=== PATIENT | female | born 1965 | race Caucasian/White ===

== ENCOUNTER 2020-01-24 11:08 | Emergency (ER) | payer BC, OTHER ==
[2020-01-24] MEDS ORDERED: ONDANSETRON INJ 4 MG/2 ML VIAL IV ONE (11:27)
[2020-01-24] MEDS ORDERED: SODIUM CHLORIDE 0.9% 1000ML 1,000 ML IVS ONE (11:27)
[2020-01-24] MEDS ORDERED: SODIUM CHLORIDE 0.9% (FLUSH) 10 ML SYG IV PRN (11:27)
--- NOTE | 2020-01-24 11:31 | ED.PDOC ---
History of Present Illness - General Chief Complaint: Abdominal Pain Stated Complaint: abdominal pain Time Seen by Provider: 01/24/20 11:18 Information Source: patient, RN notes reviewed, Vital Signs reviewed Exam Limitations: no limitations - History of Present Illness Initial Comments: Patient is a 54-year-old white female who presents with complaints of 4 to 5 days of lower abdominal pain, worsening. Patient denies any history of medical problems but does take synthetic hormones for her menopause and until about 6 months ago had started on thyroid hormone but has not taken it in the last 6 months. Patient states that her lower abdominal pain is worsening. It is cramping and colicky in nature. It is bilateral. Nothing seems to make it better. Worse with eating. There is no radiation of the pain. She does complain of some malaise and fatigue. Abdominal Pain Onset Location: RLQ, LLQ, suprapubic Pain Radiation: no radiation Quality: moderate, cramping, intermittent, waxing/waning Timing/Duration: 1 week, getting worse Improving Factors: nothing Worsening Factors: eating Associated Symptoms: fatigue, nausea/vomiting - nausea only., weakness Review of Systems - Review of Systems Constitutional: States: see HPI, malaise, weakness. Denies: chills, fever EENTM: States: no symptoms reported. Denies: eye pain, blurred vision, double vision Respiratory: States: no symptoms reported. Denies: cough, short of breath Cardiology: States: no symptoms reported. Denies: chest pain, palpitations, syncope Gastrointestinal/Abdominal: States: see HPI, abdominal pain, nausea. Denies: constipation, diarrhea, vomiting Genitourinary: States: no symptoms reported. Denies: dysuria, frequency Musculoskeletal: States: no symptoms reported. Denies: back pain, joint pain, neck pain Skin: States: no symptoms reported. Denies: change in color, rash Neurological: States: see HPI, weakness. Denies: headache, numbness, paresthesia, tingling, tremors Endocrine: States: no symptoms reported. Denies: increased hunger, increased thirst, increased urine Hematologic/Lymphatic: States: no symptoms reported. Denies: blood clots, easy bleeding All other Systems: Reviewed and Negative Past Medical History (General) - Patient Medical History Hx Asthma: Yes Hx Gastroesophageal Reflux: Yes Hx Cancer: No Hx Hepatitis C: No - Vaccination History Hx Influenza Vaccination: Yes - Social History Hx Tobacco Use: No Hx Alcohol Use: No - Female History Patient : No Family Medical History - Family History Mother Family History: Unknown Living Status: Still Living Physical Exam - Physical Exam General Appearance: Alert, Anxious, Obvious distress, Well Developed, Well Groomed, Well Hydrated, Well Nourished Eyes, Ears, Nose, Throat Exam: PERRL/EOMI, normal ENT inspection, pharynx normal Neck: non-tender, full range of motion, supple, normal inspection Respiratory: chest non-tender, lungs clear, normal breath sounds, no respiratory distress, no accessory muscle use Cardiovascular/Chest: normal peripheral pulses, regular rate, rhythm, no edema, no gallop, no JVD, no murmur Peripheral Pulses: No deficit Gastrointestinal/Abdominal: normal bowel sounds, soft, distended, tenderness - bilateral lower quadrants with mild suprapubic TTP. Back Exam: normal inspection, no CVA tenderness, no vertebral tenderness Extremity: normal range of motion, non-tender, normal inspection, no pedal edema Neurologic: warp preparer II-XII nml as tested, no motor/sensory deficits, alert, normal mood/affect, oriented x 3 Skin Exam: normal color, warm/dry Lymphatic: no adenopathy Progress - Progress Progress: Differential diagnosis: UTI, bowel obstruction, pyelonephritis, appendicitis among others. 01/24/20 13:55 Labs are relatively unremarkable. There is no UTI by urinalysis. There is not an elevated white count. Patient does have heme positive stool which is concerning for potential malignancy. CT scan does not show any abnormalities, but with a heme positive stool patient will need to be seen by GI and have an endoscopy performed. I have discussed plan of care of discharging patient home with pain medication and Zofran. She voices understanding and agreement with the plan of care. Kvein García M.D. #[id number] - Results/Orders Results/Orders: 01/24/20 11:27 Hold Metformin x 48Hrs [id number] Sodium Chloride 0.9% (Flush) [Saline Flush Syringe] 10 ml IV PRN PRN Laboratory Results - last 24 hr 01/24/20 01/24/20 01/24/20 11:15 11:30 11:30 WBC 9.0 RBC 4.78 Hgb 14.6 Hct 43.6 MCV 91.3 MCH 30.6 MCHC 33.5 RDW 14.1 Plt Count 300 MPV 7.7 Absolute Neuts (auto) 5.40 Absolute Lymphs (auto) 2.50 Absolute Monos (auto) 0.90 H Absolute Eos (auto) 0.10 Absolute Basos (auto) 0.10 Neutrophils % 59.9 Lymphocytes % 28.1 Monocytes % 10.0 H Eosinophils % 1.2 Basophils % 0.8 Sodium 139 Potassium 3.8 Chloride 102 Carbon Dioxide 27 Anion Gap 13.8 BUN 8 Creatinine 0.99 BUN/Creatinine Ratio 8.1 L Random Glucose 92 Serum Osmolality 275.5 Calcium 8.9 Total Bilirubin 1.0 Direct Bilirubin 0.1 Indirect Bilirubin 0.9 H AST 31 ALT 53 Alkaline Phosphatase 124 H Serum Total Protein 7.8 Albumin 4.6 Lipase 39 TSH Urine Color Yellow Urine Appearance Sl cloudy Urine pH 5.5 Ur Specific [place] >= 1.030 Urine Protein Negative Urine Glucose (UA) Negative Urine Ketones Negative Urine Blood Trace-lysed H Urine Nitrite Negative Urine Bilirubin Negative Urine Urobilinogen 0.2 Ur Leukocyte Esterase Negative Urine RBC 0-1 Urine WBC 1-3 Ur Epithelial Cells 3-5 Amorphous Sediment 1+ Urine Bacteria Rare Urine Mucus Small Stool Occult Blood 01/24/20 01/24/20 11:30 11:56 WBC RBC Hgb Hct MCV MCH MCHC RDW Plt Count MPV Absolute Neuts (auto) Absolute Lymphs (auto) Absolute Monos (auto) Absolute Eos (auto) Absolute Basos (auto) Neutrophils % Lymphocytes % Monocytes % Eosinophils % Basophils % Sodium Potassium Chloride Carbon Dioxide Anion Gap BUN Creatinine BUN/Creatinine Ratio Random Glucose Serum Osmolality Calcium Total Bilirubin Direct Bilirubin Indirect Bilirubin AST ALT Alkaline Phosphatase Serum Total Protein Albumin Lipase TSH 2.33 Urine Color Urine Appearance Urine pH Ur Specific [place] Urine Protein Urine Glucose (UA) Urine Ketones Urine Blood Urine Nitrite Urine Bilirubin Urine Urobilinogen Ur Leukocyte Esterase Urine RBC Urine WBC Ur Epithelial Cells Amorphous Sediment Urine Bacteria Urine Mucus Stool Occult Blood Positive H EXAM: Abdomen/Pelvis w/Contrast CLINICAL HISTORY: bilateral lower abdominal pain COMPARISON STUDY: CT abdomen and pelvis from June 03, 2011 TECHNICAL: Post IV and oral contrast images were performed through the abdomen and pelvis. Sagittal and coronal reconstructions were obtained. FINDINGS: The visible portion of the chest is negative. The heart is not enlarged. The liver, spleen, pancreas, adrenal glands, and kidneys enhance appropriately and demonstrate no acute abnormality. The liver measures 18 cm. A mild diffuse decreased density is seen throughout the hepatic parenchyma. The gallbladder is intact and there is no evidence of biliary dilatation. There is no bowel obstruction or free air. A few scattered sigmoid diverticula are present. There is no acute inflammatory process. The appendix is visible and normal. The aorta, IVC and retroperitoneum are negative. Structures within the pelvis are negative. The uterus is absent. The visible osseous structures are negative. IMPRESSION: NO ACUTE INTRA-ABDOMINAL OR PELVIC ABNORMALITY. This exam was performed according to our departmental dose-optimization program, which includes automated exposure control, adjustment of the mA and/or kV according to patient size and/or use of iterative reconstruction technique. Electronically signed by: Royce Becker MD 01/24/2020 1:08 PM Vital Signs 01/24/20 01/24/20 01/24/20 11:47 12:33 13:00 Temperature 98.0 F Pulse Rate [ 64 66 68 Left Radial] Respiratory 18 14 14 Rate Blood Pressure 145/75 118/74 124/74 [Right Arm] O2 Sat by Pulse 99 98 98 Oximetry Departure - Departure Clinical Impression: Rectal bleeding Abdominal pain Qualifiers: Abdominal location: lower abdomen, unspecified Qualified Code(s): R10.30 - Lower abdominal pain, unspecified Time of Disposition: 13:57 Disposition: Discharge to Home or Self Care Condition: Good Departure Forms: ED Discharge - Pt. Copy, Patient Portal Self Enrollment Instructions: DI for Abdominal Pain-Adult, Acute Abdomen (Belly Pain), Adult (DC), Bloody Stools, Adult (DC) Diet: resume usual diet Activity: increase activity as tolerated Referrals: MARTHA GODOY IV, MERCHANDISING [facility]IST [Primary Care Provider] - 1-5 Days Prescriptions: Ondansetron [Ondansetron Odt] 4 mg PO Q6H #20 tab Home Medications: Ambulatory Orders Acyclovir 01/24/20 Estradiol 01/24/20 Estradiol 01/24/20 Omeprazole 01/24/20 Ondansetron [Ondansetron Odt] 4 mg PO Q6H #20 tab 01/24/20
[2020-01-24 11:51] VITALS: TEMP 98
[2020-01-24 12:34] VITALS: O2SAT 98
--- NOTE | 2020-01-24 13:10 | CT ---
EXAM: Abdomen/Pelvis w/Contrast CLINICAL HISTORY: bilateral lower abdominal pain COMPARISON STUDY: CT abdomen and pelvis from June 03, 2011 TECHNICAL: Post IV and oral contrast images were performed through the abdomen and pelvis. Sagittal and coronal reconstructions were obtained. FINDINGS: The visible portion of the chest is negative. The heart is not enlarged. The liver, spleen, pancreas, adrenal glands, and kidneys enhance appropriately and demonstrate no acute abnormality. The liver measures 18 cm. A mild diffuse decreased density is seen throughout the hepatic parenchyma. The gallbladder is intact and there is no evidence of biliary dilatation. There is no bowel obstruction or free air. A few scattered sigmoid diverticula are present. There is no acute inflammatory process. The appendix is visible and normal. The aorta, IVC and retroperitoneum are negative. Structures within the pelvis are negative. The uterus is absent. The visible osseous structures are negative. IMPRESSION: NO ACUTE INTRA-ABDOMINAL OR PELVIC ABNORMALITY. This exam was performed according to our departmental dose-optimization program, which includes automated exposure control, adjustment of the mA and/or kV according to patient size and/or use of iterative reconstruction technique. Electronically signed by: Royce Becker MD 01/24/2020 1:08 PM CDT
[2020-01-24 14:06] VITALS: BP 124/94
== END 2020-01-24 14:07 | disposition home or self-care (01) ==
LOC: ER 11:08
DX: R10.30 Lower abdominal pain, unspecified (principal); K62.5 Hemorrhage of anus and rectum; R53.83 Other fatigue; Z79.890 Hormone replacement therapy; R11.0 Nausea
CPT/HCPCS: 36415; 74177; 80048; 80076; 81001; 82270; 83690; 84443; 85025; 96361; 96374; 99284; A4216; J2405; J7030